=== PATIENT | female | born 1985 | race Caucasian/White ===

== ENCOUNTER → 2021-09-03 14:19 | Outpatient (BNVA) | payer BC, SELFPAY | PROVIDERS: PCP Nurse Practitioner; Visit Provider Nurse Practitioner | DX: L03.313 Cellulitis of chest wall (principal) | CPT/HCPCS: 85025 ==

== ENCOUNTER → 2021-09-06 09:33 | Outpatient (BNVA) | payer BC, SELFPAY | PROVIDERS: PCP Nurse Practitioner; Visit Provider Nurse Practitioner | DX: L03.90 Cellulitis, unspecified (principal) | CPT/HCPCS: 87070 ==

== ENCOUNTER → 2022-01-07 09:51 | Outpatient (BNVA) | payer SELFPAY | PROVIDERS: PCP Nurse Practitioner; Visit Provider Dermatology | DX: Z01.89 Encounter for other specified special examinations (principal) ==

== ENCOUNTER → 2023-04-07 09:14 | Outpatient (BNVA) | payer SELFPAY | PROVIDERS: PCP Nurse Practitioner; Visit Provider Dermatology | DX: Z01.89 Encounter for other specified special examinations (principal) ==

== ENCOUNTER → 2024-01-13 14:48 | Outpatient (BNVA) | payer BC, SELFPAY | PROVIDERS: PCP Nurse Practitioner; Visit Provider Nurse Practitioner | DX: F41.8 Other specified anxiety disorders (principal); R60.9 Edema, unspecified; R10.31 Right lower quadrant pain; Z79.899 Other long term (current) drug therapy | CPT/HCPCS: 80053; 81000; 85025 ==

== ENCOUNTER 2024-01-26 15:39 | Outpatient (CLI) | payer BC, SELFPAY ==
[2024-01-26] MEDS: iohexol 350 mg/mL 500 mL Btl (per mL) PO (16:10)
[2024-01-26] MEDS: iohexol 350 mg/mL 500 mL Btl (per mL) IV (17:00)
--- NOTE | 2024-01-26 17:00 | CTR_ITS ---
PROCEDURE INFORMATION: Exam: CT Abdomen And Pelvis With Contrast Exam date and time: 01/26/2024 4:54 PM Age: 38 years old Clinical indication: Abdominal pain; Localized; Right lower quadrant (rlq); Prior surgery; Surgery date: 1-6 months; Surgery type: Uterine ablation in October 2023, tubal; Patient HX: Rlq pain x 2 weeks, ? appy; Additional info: R10.31 - right lower quadrant pain TECHNIQUE: Imaging protocol: Computed tomography of the abdomen and pelvis with contrast. Radiation optimization: All CT scans at this facility use at least one of these dose optimization techniques: automated exposure control; mA and/or kV adjustment per patient size (includes targeted exams where dose is matched to clinical indication); or iterative reconstruction. Contrast material: OMNIPAQUE 350; Contrast volume: 100 ml; Contrast route: INTRAVENOUS (IV); Other contrast: Oral, omnipaque 350, 40ml; COMPARISON: No relevant prior studies available. RADIATION DOSE METRICS: Total DLP (mGy-cm): 956 FINDINGS: Liver: The liver is unremarkable. Gallbladder and biliary ducts: The gallbladder is unremarkable. No biliary ductal dilatation. Pancreas: The pancreas is unremarkable. Spleen: The spleen is unremarkable. Adrenal glands: The adrenal glands are unremarkable. Kidneys and ureters: No hydronephrosis or nephrolithiasis. Stomach and bowel: No evidence of bowel obstruction. No pericolonic inflammatory stranding. Appendix: No evidence of appendicitis. Intraperitoneal space: Unremarkable. No free air. No significant fluid collection. Vasculature: Unremarkable. No abdominal aortic aneurysm. Lymph nodes: Unremarkable. No enlarged lymph nodes. Urinary bladder: No focal wall thickening of the urinary bladder. Reproductive: Uterus is unremarkable. No suspicious adnexal lesion seen. Tubal ligation clips are seen. Bones/joints: Degenerative disc disease seen at the lower lumbar spine and lumbosacral junction. Soft tissues: Unremarkable. CT/CT abdomen pelvis w con* [id number] IMPRESSION: No CT evidence of acute abdominopelvic findings.
== END 2024-01-26 15:40 | disposition home or self-care (01) ==
PROVIDERS: PCP Nurse Practitioner; Visit Provider Nurse Practitioner
DX: R10.31 Right lower quadrant pain (principal)
CPT/HCPCS: 74177; Q9967

== ENCOUNTER → 2025-02-22 11:43 | Outpatient (BNVA) | payer BC, SELFPAY | PROVIDERS: PCP Nurse Practitioner; Visit Provider Nurse Practitioner | DX: F41.8 Other specified anxiety disorders (principal); E66.01 Morbid (severe) obesity due to excess calories | CPT/HCPCS: 80053; 80061; 82306; 84443 ==